=== PATIENT | male | born 1955 | race Caucasian/White ===

== ENCOUNTER 2023-10-14 18:15 | Emergency (ER) | payer MEDICARE, SELFPAY ==
[2023-10-14 18:16] VITALS: BP 160/89
[2023-10-14] MEDS: XYLOCAINE VISCOUS CUP 15 ML PO (19:20)
--- NOTE | 2023-10-14 20:36 | ED.GENMED ---
History of Present Illness
General
Chief Complaint: Insect Sting
Time Seen by Provider: 10/14/23 18:35
History of Present Illness
History of Present Illness:
68-year-old male with history of hypertension presenting to the emergency department for concern of allergic reaction. Patient reports prior to arrival he was drinking out of a beer bottle and ingested a bee. The bee subsequently stung him in the
throat. He then went to an urgent care. At the time, denied any difficulty breathing or difficulty swallowing. Urgent care then administered epinephrine and Decadron. Patient denies any severe allergic reaction past. Upon arrival to the
hospital, continues to deny any difficulty breathing or difficulty swallowing. Does note some pain in the throat. Denies any chest pain. Denies any rash. Denies additional acute medical complaints.
Phy Exam
Physical Exam
Physical Exam:
General: Well-appearing, no clinical signs of dehydration, nontoxic and in no acute distress
HEENT: protecting airway. No trismus. Normal phonation of voice. Mild swelling to the uvula, however midline. No swelling to the tongue or lips.
Neck: appears supple
CV: Normal heart rate, regular rhythm, no evidence of cyanosis
Resp: No accessory muscle use, no increased work of breathing, lungs clear to auscultation bilaterally
Abd: Nondistended
Extremities: No deformities, no swelling
Neuro: alert, no focal neurologic deficit
: deferred
Rectal: deferred
Psych: Normal affect
Skin: Intact, no systemic rash
Course
Orders/Labs/Results
Orders:
Orders
10/14/23 19:04
Viscous Lidocaine 2% [Xylocaine Viscous Cup] 15 ml PO ONCE ONE
Vital Signs
Initial and Last Documented VS:
Initial Vital Signs
Temp Pulse Resp BP Pulse Ox
97.7 F 109 20 160/89 94
10/14/23 18:16 10/14/23 18:16 10/14/23 18:16 10/14/23 18:16 10/14/23 18:16
Last Documented Vital Signs
Temp Pulse Resp BP Pulse Ox
97.7 F 97 16 160/89 95
10/14/23 18:16 10/14/23 20:10 10/14/23 20:10 10/14/23 18:16 10/14/23 20:10
MDM/Problems Addressed
MDM/Problems Addressed:
68-year-old male with history of hypertension presenting to the emergency department with concern of allergic reaction. Patient swallowed a bee prior to arrival, was stung in the throat and subsequently received epinephrine. Vital signs on arrival
significant for high blood pressure and tachycardia.
On exam patient is well-appearing, no acute distress. Patient in no respiratory distress. He is handling secretions without difficulty, no stridor, no wheezing, normal phonation of voice. Per patient, denies ever having any respiratory symptoms,
and notes that the urgent care gave him epinephrine as a precaution. Given this information, lower suspicion for an anaphylactic reaction. However given that patient was administered epinephrine, will appropriately observe and monitor
20:40 - After 3 hours of observation, patient continues to request to go home. Feel reasonable, remains hemodynamically stable without acute respiratory symptoms. Will prescribe EpiPen in the event that patient does have an allergic reaction in
the future. Otherwise feel stable for discharge. Precautions discussed and patient verbalized understanding
*Critical Care Note
Total Time (30-74mins, 75-104mins- exclusive of procedures): Not Applicable
ED Attending Note
-
Portions of this chart may have been created with voice recognition software.� Occasional wrong word or��sound alike� substitutions may have occurred due to the inherent limitations of voice recognition software.
Discharge Plan
Departure
Referrals:
Robert De Leon DO [Family Provider] -
Interventions
Interventions:
ED- Pulmonary Assessment Last Done: 10/14/23 18:39
ED-Skin Assessment Last Done: 10/14/23 18:39
Discharge Date and Time
Print Language: GERMAN
[2023-10-14 20:49] VITALS: BP 163/109
[2023-10-14] MEDS: TORADOL 15 MG IV (20:55)
== END 2023-10-14 21:04 | disposition home or self-care (01) ==
LOC: EMR 18:15
PROVIDERS: EMERGENCY PHYSICIAN Student in an Organized Health Care Education/Training Program; FAMILY PHYSICIAN Family Medicine
DX: T63.441A Toxic effect of venom of bees, accidental (unintentional), initial encounter (principal); I10 Essential (primary) hypertension
CPT/HCPCS: 99284; 96374

== ENCOUNTER 2024-06-27 06:26 | Day surgery (SDC) | payer MEDICARE, SELFPAY | END 2024-06-27 11:33 | disposition home or self-care (01) | LOC: GI 06:26 | PROVIDERS: ATTENDING PHYSICIAN Student in an Organized Health Care Education/Training Program | DX: Z12.11 Encounter for screening for malignant neoplasm of colon (principal); R19.5 Other fecal abnormalities; K64.4 Residual hemorrhoidal skin tags; K64.0 First degree hemorrhoids; K57.30 Diverticulosis of large intestine without perforation or abscess without bleeding; K63.5 Polyp of colon; D12.1 Benign neoplasm of appendix | CPT/HCPCS: 45385; 45380; 88305 ==